=== PATIENT | male | born 1995 | race Caucasian/White ===

== ENCOUNTER → 2019-03-15 | Emergency (ER) | payer MEDICAID ==
[~2019-03-15] VITALS: Ht 165.1 cm; Wt 77.5 kg
[~2019-03-15] MED LIST: OFLO5DRO46 LEFT EYE; TETRACAINE 0.5% 4 ML OPH LEFT EYE ONE
[2019-03-15 04:55] VITALS: BP 145/93; PULSE 63; RESP 19; Ht 165.1 cm; Wt 77.5 kg
--- NOTE | 2019-03-15 07:42 | ERD ---
ER Documentation Chief Complaint Chief Complaint POSS FB IN LEFT EYE; PAINT? HPI 23-year-old male presenting with a foreign body to his left eye. Is unsure what got his eye but thinks it may be metal. He does not wear contacts or glasses and he does not have any visual deficits but states he has irritation when he blinks. He does not use any medications on the area. Denies medical problems. NKDA. Surgical history is left hand and nose surgery. Social history denies ROS All systems reviewed and are negative except as per history of present illness. Medications Home Meds Active Scripts Ofloxacin* (Ocuflox*) 0.3%-5 Ml Ophth Drops, 1 DROP LEFT EYE QID, #1 BOTTLE Prov:RAFAEL SALDAÑA PA-C 03/15/19 Allergies Allergies: Coded Allergies: No Known Allergy (Unverified , 03/15/19) PMhx/Soc History of Surgery: Yes (FOREARM SX, NOSE SX) Hx Alcohol Use: Yes Hx Substance Use: No Hx Tobacco Use: No Smoking Status: Never smoker FmHx Family History: No diabetes, No coronary disease, No other Physical Exam Vitals Vital Signs Date Temp Pulse Resp B/P (MAP) Pulse Ox O2 O2 Flow FiO2 Time Delivery Rate 03/15/19 98.2 63 19 145/93 100 04:55 (110) Physical Exam GENERAL: The patient is well-appearing, well-nourished, in no acute distress HEENT: Atraumatic. Conjunctivae are pink. Pupils equal, round, and reactive to light. There is no scleral icterus. Tympanic membranes clear bilaterally. Oropharynx clear. Foreign body noted over the cornea. CHEST: Clear to auscultation bilaterally. There are no rales, wheezes or rhonchi. HEART: Regular rate and rhythm. No murmurs, clicks, rubs or gallops. Results 24 hrs Current Medications Medications Dose Sig/Kartik Start Time Status Last (Trade) Ordered Route PRN Stop Time Admin Dose Reason Admin Tetracaine 1 drop ONCE ONCE 03/15/19 DC HCl LEFT EYE 06:30 03/15/19 (Tetracaine 06:31 0.5% Steri-Unit Ricarda) Procedures/MDM ER course: Tetracaine applied to left eye and using insulin syringe foreign bodies removed without iatrogenic injury. MDM: 23-year-old male presenting with foreign body in the cornea. Foreign body was removed without complication. Patient tolerated procedure well. Patient will be discharged with ophthalmic antibiotic drops. I have low suspicion for retained foreign body. I have low suspicion for visual deficit. Patient is discharged with strict ER precautions and recommended to follow-up with ophthalmology. Patient is discharged. All questions answered at discharge Departure Diagnosis: Primary Impression: Foreign body in cornea Condition: Stable Patient Instructions: Foreign Object in the Cornea Referrals: [facility] YOU HAVE RECEIVED A MEDICAL SCREENING EXAM AND THE RESULTS INDICATE THAT YOU DO NOT HAVE A CONDITION THAT REQUIRES URGENT TREATMENT IN THE EMERGENCY DEPARTMENT. FURTHER EVALUATION AND TREATMENT OF YOUR CONDITION CAN WAIT UNTIL YOU ARE SEEN IN YOUR DOCTORS OFFICE WITHIN THE NEXT 1-2 DAYS. IT IS YOUR RESPONSIBILITY TO MAKE AN APPOINTMENT FOR FOLOW-UP CARE. IF YOU HAVE A PRIMARY DOCTOR --you should call your primary doctor and schedule an appointment IF YOU DO NOT HAVE A PRIMARY DOCTOR YOU CAN CALL OUR PHYSICIAN REFERRAL HOTLINE AT IF YOU CAN NOT AFFORD TO SEE A PHYSICIAN YOU CAN CHOSE FROM THE FOLLOWING [facility] [address] [facility]. [facility] [address] [facility] [facility] [address] [facility] [facility] [address] [facility] [address] [facility] [address] [facility]. [facility]. [address] [facility] Hours: Mon - Fri 9:00 AM - 5:00 PM Additional Instructions: FOLLOW UP WITH YOUR PRIMARY CARE PHYSICIAN TOMORROW.Return to this facility if you are not improving as expected. RAFAEL SALDAÑA PA-C Mar 15, 2019 07:41
== END | disposition home or self-care (01) ==
LOC: FTE 04:48
DX: T15.02XA Foreign body in cornea, left eye, initial encounter (principal); X58.XXXA Exposure to other specified factors, initial encounter; Y92.9 Unspecified place or not applicable
CPT/HCPCS: 65220; Z7502; Z7610